=== PATIENT | male | born 1995 | race Caucasian/White ===

== ENCOUNTER 2019-02-11 12:44 | Outpatient (CLI) | payer BC ==
--- NOTE | 2019-02-11 15:18 | MRI ---
MR ARTHROGRAM OF THE RIGHT ELBOW: 02/11/19 INDICATION: Loose body and pain within the right elbow. TECHNIQUE: Multiplanar and multisequence MR images were obtained of the right elbow following intra-articular ad ministration of dilute gadolinium solution. Please see the right elbow arthrogram for details concern ing the injection technique. COMPARISON: Right elbow radiograph dated 02/11/19 from the right elbow arthrogram. FINDINGS: The ulnar collateral ligament and radial collateral ligament appears intact. The lateral ulnar collat eral ligament appears intact. No intra-articular loose body is grossly evident. The common extensor, flexor origins appear within normal limits. Mild amount of edema overlying the common extensor origin likely related to injection technique. The triceps insertion is normal appearing. The ulnar nerve ap pears within normal limits. The biceps and brachialis insertions are normal appearing. No osteochondr al defect is seen involving the elbow joint. IMPRESSION: No intra-articular loose body demonstrated. No osteochondral defect demonstrated. POS: [facility]
[2019-02-11] MEDS ORDERED: Gadobenate Dimeglumine 529 MG/1 ML (20ML VIAL) ONE (15:27)
--- NOTE | 2019-02-11 15:57 | RAD ---
Arthrogram right elbow HISTORY: Elbow pain. Intracapsular loose body. FINDINGS: After explaining the procedure and answering all questions, the lateral aspect of the right elbow was prepped and draped in usual sterile fashion. Sterile technique, buffered local anesthesia, fluoroscopic guidance, and a lateral approach were used to carefully advance a 22-gauge n eedle to the joint capsule at the level of the lateral humeral epicondyle. Approximately 3 cc of a liquid mixture containing normal saline, 1% lidocaine, iodinated contrast, and small amounts of gadol inium and epinephrine were then instilled into the joint capsule under fluoroscopic control. Needle was removed. Patient tolerated the procedure well and was returned to MRI in good condition for [facility] monitoring. Fluoroscopy time 0.6 minutes. IMPRESSION: Technically successful left elbow arthrogram. MRI pending:
== END 2019-02-11 12:45 | disposition home or self-care (01) ==
LOC: RAD 12:44
PROVIDERS: ATTEND Orthopaedic Surgery
DX: M24.021 Loose body in right elbow (principal); M25.521 Pain in right elbow
CPT/HCPCS: 24220; A9577